=== PATIENT | male | born 1950 | race Caucasian/White ===

== ENCOUNTER → 2023-11-14 12:02 | Outpatient (REF) | payer MEDICARE, BC, SELFPAY | LOC: RAD 12:02 | PROVIDERS: ATTENDING PHYSICIAN Family Medicine | DX: Z13.820 Encounter for screening for osteoporosis (principal); M85.831 Other specified disorders of bone density and structure, right forearm; R29.890 Loss of height; Z96.643 Presence of artificial hip joint, bilateral | CPT/HCPCS: 77080 ==

== ENCOUNTER 2024-04-26 09:13 | Emergency (ER) | payer MEDICARE, BC, SELFPAY ==
[2024-04-26 09:26] VITALS: BP 135/80
[2024-04-26 09:34] VITALS: BMI 22.8
--- NOTE | 2024-04-26 09:35 | ED.GENMED ---
History of Present Illness
<Ericka Palencia PA-C - Last Filed: 04/26/24 16:46>
General
Chief Complaint: Fall
Source: patient
Exam Limitations: none
Time Seen by Provider: 04/26/24 09:34
Nursing documentation reviewed up to this point in time: agreed with
History of Present Illness
History of Present Illness:
Patient is a 74-year-old male presenting to the emergency department for evaluation of left foot pain following mechanical fall last night. Patient states that he was walking up a staircase in his bed and breakfast when he tripped and fell
inverting his left ankle. Patient denies any preceding lightheadedness, dizziness, chest pain, shortness of breath�states he just tripped upset. Reports pain just anterior to his left ankle and on his left foot. He has been ambulating, although
limping. Patient states pain was persistent this morning and came to the emergency department for further evaluation. Patient lives at home with his .
Patient denies any other associated injuries. Patient did not hit his head.
Past History
<Ericka Palencia PA-C - Last Filed: 04/26/24 16:46>
Past History
ED Past Medical History: Other (Prostate cancer)
Social History
Tobacco: Non-smoker
Review of Systems
<Ericka Palencia PA-C - Last Filed: 04/26/24 16:46>
Review of Systems
Allergies reviewed?: Yes
All Other Systems: ROS reviewed and negative except as documented in HPI and ROS
Phy Exam
<Ericka Palencia PA-C - Last Filed: 04/26/24 16:46>
Physical Exam
Physical Exam:
Vitals: Patient's vital signs are stable
General: Patient is well appearing, no acute distress
Skin: Warm and dry, no rashes or lesions
Head: Normocephalic, atraumatic
Eyes: Sclera nonicteric. EOMs intact. No nystagmus.
Throat: Protecting airway
Neck: Normal ROM, no cervical spine tenderness, no meningismus
Cardiac: Regular rate and rhythm, no murmurs.
Pulm: Normal respiratory effort, no wheezes, rales, rhonchi heard on exam.
Abdomen: No abdominal tenderness.
Extremities: Localized edema and area of ecchymoses along left lateral foot near base of fifth metatarsal. Tenderness to palpation of left lateral foot and just anterior to left lateral malleolus. No pain of lateral or medial malleolus of left
ankle. No pain at head of left fibula. No pain at base of left fifth metatarsal. Achilles intact. Sensation fully intact. Great distal pulses in left lower extremity. Plantarflexion and dorsiflexion of left foot intact. Left knee atraumatic
and nontender with full range of motion.
Neuro: AAOx3. CN II-XII intact. No focal neurologic deficits.
Psychiatric: Normal affect.
Course
<Ericka Palencia PA-C - Last Filed: 04/26/24 16:46>
Orders/Labs/Results
Orders:
Orders
04/26/24 09:54
Ankle, left 3 view CR [CR Ankle - Left Min 3 Views ] Urgent
Comment:
Reason For Exam: fall, left ankle inversion
Foot, Left 3 View [CR Foot - Left Min 3 Views] Urgent
Comment:
Reason For Exam: fall, pain left lateral foot
04/26/24 11:18
Cast Shoe Left-Treatment ONCE
04/26/24 11:51
Acetaminophen [Tylenol] 650 mg PO NOW STA
04/26/24 12:16
Walker [Treatment- Walker] ONCE
Vital Signs
Initial and Last Documented VS:
Initial Vital Signs
Temp Pulse Resp BP Pulse Ox
98.4 F 68 20 135/80 98
04/26/24 09:26 08/10/24 09:26 04/26/24 09:26 04/26/24 09:26 04/26/24 09:26
Last Documented Vital Signs
Temp Pulse Resp BP Pulse Ox
98.4 F 68 18 128/85 99
04/26/24 09:26 04/26/24 10:50 04/26/24 10:50 04/26/24 10:50 04/26/24 10:50
<Terrie Hernandes MD - Last Filed: 04/26/24 10:36>
Orders/Labs/Results
Orders:
Orders
04/26/24 09:54
Ankle, left 3 view CR [CR Ankle - Left Min 3 Views ] Urgent
Comment:
Reason For Exam: fall, left ankle inversion
Foot, Left 3 View [CR Foot - Left Min 3 Views] Urgent
Comment:
Reason For Exam: fall, pain left lateral foot
04/26/24 11:18
Cast Shoe Left-Treatment ONCE
04/26/24 11:51
Acetaminophen [Tylenol] 650 mg PO NOW STA
04/26/24 12:16
Walker [Treatment- Walker] ONCE
Vital Signs
Initial and Last Documented VS:
Initial Vital Signs
Temp Pulse Resp BP Pulse Ox
98.4 F 68 20 135/80 98
04/26/24 09:26 04/26/24 09:26 04/26/24 09:26 04/26/24 09:26 04/26/24 09:26
Last Documented Vital Signs
Temp Pulse Resp BP Pulse Ox
98.4 F 68 18 128/85 99
04/26/24 09:26 04/26/24 10:50 04/26/24 10:50 04/26/24 10:50 04/26/24 10:50
<Ericka Palencia PA-C - Last Filed: 08/10/24 16:46>
MDM/Problems Addressed
Differential Diagnosis Includes:
Not limited to: Ankle sprain, ankle fracture, foot sprain, foot fracture
MDM/Problems Addressed:
74-year-old male presenting with left foot pain following trip and fall up the steps yesterday evening. He is ambulating but with pain. No other associated injuries. No head strike or loss of consciousness. Vitals stable. Physical exam as above.
There is no evidence of head or neck trauma. There is a localized area of edema and ecchymoses of the left lateral foot near the base of the fifth metatarsal. No pain or tenderness of left medial or lateral malleoli. Achilles is intact. Patient
has great distal pulse and sensation of left foot. Patient able to dorsiflex and plantarflex left foot. Patient denies any analgesia at this time. Will check x-ray of both left foot and left ankle given inversion injury.
X-ray report reviewed. There is an avulsion fracture of the base of the fifth metatarsal. Will place patient in hard sole cast shoe and have him follow-up with orthopedics. Upon discharge�patient was having increasing difficulty ambulating due to
discomfort. Although he does state that he has a cane at home�feels that he would be much more capable of walking with a walker. Ordered walker for patient. Patient discharged home with and walker. Return precautions discussed. Patient
seen with attending physician.
Chronic conditions affecting care:
N/A
Acute Exacerbation and/or Progression of Chronic Illness:
N/A
<Ericka Palencia PA-C - Last Filed: 04/26/24 16:46>
*Radiology
Radiology exam reviewed: preliminary read by ED provider (Fracture of base of fifth metatarsal) and radiology read reviewed
*Pulse Oximetry
Patient hypoxic: no
*EKG
Interpreted by ED Provider?: NA
*Medical Equipment Repair Technician Interpretation
Rate: Medical Equipment Repair Technician- N/A
*Critical Care Note
Total Time (30-74mins, 75-104mins- exclusive of procedures): Not Applicable
ED Attending Note
<Ericka Palencia PA-C - Last Filed: 04/26/24 16:46>
-
Portions of this chart may have been created with voice recognition software.� Occasional wrong word or��sound alike� substitutions may have occurred due to the inherent limitations of voice recognition software.
<Terrie Hernandes MD - Last Filed: 04/26/24 10:36>
ED Attending Note
Patient seen and examined by attending physician: Yes
I performed the substantive portion of visit, reviewed & personally made and approve the management plan that is documented in note by myself or VENUS.: Yes
ED Attending Note:
Patient appears well and comfortable. Patient has strong pulses and perfusion in left foot. Patient has good sensation in bilateral feet. There is no history or suggestion of head or neck trauma.
Discharge Plan
Departure
Patient Disposition: Home (Routine Discharge)
Date of Disposition: 04/26/24
Time of Disposition: 11:18
Patient with high blood pressure during this ER visit?: No
Condition: Good
Covid-19: Not Applicable
Discharge Problem:
Fracture of fifth metatarsal bone of left foot
Instructions: Foot Fracture (DC)
Prescriptions:
No Action
Paxlovid 300 mg (150 mg x 2)-100 mg tablets,dose pack
See Rx Instructions .ROUTE .COMPLEX Qty: 30 0RF
Rx Instructions:
take TWO 150 mg tablets of nirmatrelvir with ONE 100 mg tablet of ritonavir twice daily for 5 days
Referrals:
Boris Ahuja MD [Active] - Next open appointment
Umu Castro DO [Family Provider] -
Activity Restrictions/Additional Instructions:
RETURN TO THE EMERGENCY DEPARTMENT WITH ANY FEVERS, SIGNIFICANT PAIN OR SWELLING OF LEFT FOOT, NUMBNESS/TINGLING IN LEFT FOOT, WORSENING IN CURRENT SYMPTOMS, OR ANY OTHER CONCERNS
-As discussed�you should keep your left foot elevated and apply ice. Keep foot in hard soled shoe as provided to you in the emergency department. You can use your cane at home as needed for weightbearing. You can take Tylenol at home as needed
for any pain.
-Follow-up with orthopedics for further evaluation/management. The contact information has been provided for you above.
Monitor your symptoms closely return to the emergency department with any acute worsening/new symptoms
Interventions
Interventions:
*Risk Screen - Suicide Last Done: 04/26/24 09:26
*General Assessment Last Done: 04/26/24 09:26
*Neglect/Abuse Screening Last Done: 04/26/24 09:26
*Nursing Disposition Last Done: 04/26/24 13:27
ED-Musculoskeletal Assessment Last Done: 04/26/24 09:35
ED- Neurological Assessment Last Done: 04/26/24 09:35
ED-Skin Assessment Last Done: 04/26/24 09:35
Discharge Date and Time
Discharge Date/Time: 04/26/24 13:28
Print Language: YAKUT
[2024-04-26 10:50] VITALS: BP 128/85
[2024-04-26] MEDS: TYLENOL 650 MG PO (11:55)
== END 2024-04-26 13:28 | disposition home or self-care (01) ==
LOC: EMR 09:13
PROVIDERS: EMERGENCY PHYSICIAN Emergency Medicine; FAMILY PHYSICIAN Family Medicine
DX: S92.352A Displaced fracture of fifth metatarsal bone, left foot, initial encounter for closed fracture (principal); W10.9XXA Fall (on) (from) unspecified stairs and steps, initial encounter; Y93.01 Activity, walking, marching and hiking; Z85.46 Personal history of malignant neoplasm of prostate
CPT/HCPCS: 99283; 73610; 73630

== ENCOUNTER → 2024-06-23 07:30 | Outpatient (REF) | payer MEDICARE, BC, SELFPAY | LOC: EMG 07:30 | PROVIDERS: ATTENDING PHYSICIAN Pain Medicine Interventional Pain Medicine; FAMILY PHYSICIAN Family Medicine | DX: M54.16 Radiculopathy, lumbar region (principal); R20.0 Anesthesia of skin | CPT/HCPCS: 95886; 95911 ==

== ENCOUNTER → 2024-07-18 15:33 | Outpatient (REF) | payer MEDICARE, BC, SELFPAY | LOC: PAVMRI 15:33 | PROVIDERS: ATTENDING PHYSICIAN Pain Medicine Interventional Pain Medicine; FAMILY PHYSICIAN Family Medicine | DX: M54.16 Radiculopathy, lumbar region (principal) | CPT/HCPCS: 72148 ==

== ENCOUNTER 2024-10-13 06:13 | Day surgery (SDC) | payer MEDICARE, BC, SELFPAY | END 2024-10-13 14:42 | disposition home or self-care (01) | LOC: GI 06:13 | PROVIDERS: ATTENDING PHYSICIAN Internal Medicine | DX: Z12.11 Encounter for screening for malignant neoplasm of colon (principal); K57.30 Diverticulosis of large intestine without perforation or abscess without bleeding | CPT/HCPCS: G0121 ==

== ENCOUNTER → 2025-06-09 14:15 | Outpatient (REF) | payer MEDICARE, BC, SELFPAY | LOC: EMG 14:15 | PROVIDERS: ATTENDING PHYSICIAN Physician Assistant; FAMILY PHYSICIAN Family Medicine | DX: M54.16 Radiculopathy, lumbar region (principal); M21.372 Foot drop, left foot; R20.0 Anesthesia of skin | CPT/HCPCS: 95886; 95911 ==